=== PATIENT | female | born 1995 | race African-American/Black ===

== ENCOUNTER 2019-05-26 01:44 | Observation (INO) | payer MEDICAID ==
[~2019-05-26] VITALS: Ht 162.6 cm; Wt 99.8 kg
[2019-05-26] MEDS ORDERED: ACETAMINOPHEN 500MG TABLET PO SCH (05:17)
== END 2019-05-26 08:35 | disposition home or self-care (01) ==
LOC: 8 EST LDRP 01:44
PROVIDERS: ADMIT Specialist; ATTEND Specialist
DX: O26.893 Other specified pregnancy related conditions, third trimester (principal); R10.2 Pelvic and perineal pain; Z3A.34 34 weeks gestation of pregnancy
CPT/HCPCS: 76805; 76818; 99281; G0378

== ENCOUNTER 2019-05-26 08:43 | Emergency (ER) | payer MEDICAID ==
[~2019-05-26] VITALS: Ht 157.5 cm; Wt 83.1 kg
[2019-05-26] MEDS ORDERED: ACETAMINOPHEN 325MG TABLET PO ONE (09:30)
[2019-05-26 10:50] VITALS: BP 118/77
== END 2019-05-26 11:05 | disposition home or self-care (01) ==
LOC: ER 08:47
DX: O9A.213 Injury, poisoning and certain other consequences of external causes complicating pregnancy, third trimester (principal); M25.551 Pain in right hip; O26.893 Other specified pregnancy related conditions, third trimester; R10.2 Pelvic and perineal pain; Z88.5 Allergy status to narcotic agent; Z3A.34 34 weeks gestation of pregnancy; V00.121A Fall from non-in-line roller-skates, initial encounter; Y93.51 Activity, roller skating (inline) and skateboarding; Y92.89 Other specified places as the place of occurrence of the external cause; Y99.8 Other external cause status
CPT/HCPCS: 72170; 99283